=== PATIENT | male | born 1985 | race Caucasian/White ===

== ENCOUNTER 2020-02-25 16:18 | Emergency (ER) | payer OTHER, SELFPAY ==
[2020-02-25 16:30] VITALS: BP 151/85; PULSE 65; RESP 16; TEMP 36.8; O2SAT 100
--- NOTE | 2020-02-25 16:32 | ED.GENADULT ---
HPI - General Adult General Chief complaint: Dental/Oral Stated complaint: dental Time Seen by Provider: 02/25/20 16:28 Source: patient and RN notes reviewed Mode of arrival: ambulatory Limitations: no limitations History of Present Illness HPI narrative: 34-year-old male presents with concern for returning to work after having dental surgery. Reports he missed 11 days of work after his surgery. He denies any complications, pain, bleeding. He denies cough, shortness of breath, fever, body aches, chills, sweats, rhinorrhea, nasal congestion, sore throat. complaint: Status post dental surgery Related Data Allergies Allergy/AdvReac Type Severity Reaction Status Date / Time No Known Allergies Allergy Verified 02/25/20 16:33 Review of Systems Review of Systems: Narrative: CONSTITUTIONAL: Denies malaise, chills, sweats, or fever. EYES: Denies visual changes, redness, or discharge. ENT: Denies rhinorrhea, congestion, sinus pain, otalgia or sore throat. CARDIOVASCULAR: Denies chest pain, palpitations, or edema. RESPIRATORY: Denies cough or dyspnea. GASTROINTESTINAL: Denies abdominal pain, nausea, vomiting, diarrhea MUSCULOSKELETAL: Denies back pain, joint pain, or myalgia. NEUROLOGIC: Denies headache. All systems reviewed & are unremarkable except as noted in HPI and below PMFSH Comments At time of signature, agree with nursing past medical, surgical, social and family history. There is no relevant family history pertinent to the presenting complaint Exam Narrative: Exam Narrative: GENERAL: Well-appearing, well-nourished, and in no acute distress. HEAD: Normocephalic, atraumatic. EYES: PERRLA, conjunctivae clear, and EOMI. No nystagmus. ENT: Nares clear, turbinates pink, no rhinorrhea or epistaxis. Mucous membranes moist. TM pearly shah with sharp light reflex bilaterally; no tragal tenderness. Oropharynx without erythema or lesions. Tonsils not enlarged and without exudate. Grossly normal dentition NECK: Supple. CHEST: No respiratory distress. Clear to auscultation. No bony deformities, no asymmetry. Speaks in full sentences. HEART: Regular rate and rhythm. No murmur heard. SKIN: Warm, dry, no rash. NEURO: Alert and oriented x3. PSYCH: Normal mood and affect Course Course Emergency Course: Patient is aware of diagnosis, understands and agrees to treatment plan. Anticipatory guidance given. Patient agrees to follow-up as directed and is aware of reasons to seek care at the emergency department. Portions of this record may have been created with voice recognition software Vital Signs Vital signs: Vital Signs Temperature 98.2 F 02/25/20 16:30 Pulse Rate 65 02/25/20 16:30 Respiratory Rate 16 02/25/20 16:30 Blood Pressure 151/85 H 02/25/20 16:30 Pulse Oximetry 100 02/25/20 16:30 Temperature 98.2 F 02/25/20 16:30 Pulse Rate 65 02/25/20 16:30 Respiratory Rate 16 02/25/20 16:30 Blood Pressure 151/85 H 02/25/20 16:30 Pulse Oximetry 100 02/25/20 16:30 Reviewed. Pt has been instructed to follow up with his primary care provider within the next week regarding his elevated blood pressure today. Medical Decision Making MDM Narrative Medical decision making narrative: Exam findings show no acute concerns or changes; patient is non-toxic appearing and is in no distress. Patient is appropriate for outpatient treatment and follow-up. Vital Signs Vital Signs: Vital Signs Temperature 98.2 F 02/25/20 16:30 Pulse Rate 65 02/25/20 16:30 Respiratory Rate 16 02/25/20 16:30 Blood Pressure 151/85 H 02/25/20 16:30 Pulse Oximetry 100 02/25/20 16:30 Temperature 98.2 F 02/25/20 16:30 Pulse Rate 65 02/25/20 16:30 Respiratory Rate 16 02/25/20 16:30 Blood Pressure 151/85 H 02/25/20 16:30 Pulse Oximetry 100 02/25/20 16:30 Critical Care Time Critical Care Time Critical Care Time: No Discharge Plan Discharge Clinical Impression: History of dental surgery
== END 2020-02-25 16:41 | disposition home or self-care (01) ==
PROVIDERS: Emergency Provider Nurse Practitioner; PCP Student in an Organized Health Care Education/Training Program
DX: Z98.818 Other dental procedure status (principal)
CPT/HCPCS: 99201; G0463